=== PATIENT | female | born 1995 | race African-American/Black ===

== ENCOUNTER 2016-11-05 05:29 | Emergency (ER) | payer OTHER ==
[~2016-11-05] VITALS: Ht 162.6 cm; Wt 68.0 kg
[~2016-11-05 05:29] MED LIST: Z.0.BCPILL PO
[2016-11-05 05:32] VITALS: BP 138/85; PULSE 94; RESP 16; TEMP 98.1; O2SAT 99
--- NOTE | 2016-11-05 05:59 | PD ---
HPI Chief Complaint: Musculoskeletal Complaint Time Seen by Provider: 05:50 Travel History International Travel<30 days: No Contact w/Intl Traveler<30days: No Traveled to known affect area: No History of Present Illness HPI 21-year-old female here with lateral left ankle pain. Symptoms started 2 days ago. Pain is throbbing pain localized to the lateral left ankle with associated soft tissue swelling. She does not recall any injury. Denies any fall or trauma. Symptoms have persisted which prompted evaluation. She denies any pain in the left foot, left calf, left knee. She has no other complaints at this time. [facility] Past Medical History Medical History: Denies Significant Hx Diminished Hearing: No Tetanus Vaccination: < 5 Years Influenza Vaccination: No ?: Unknown LMP: 2 WKS AGO-IRREGULAR Menopausal: No Past Surgical History Surgical History: No Previous Surgery Social History Alcohol Use: Yes (OCCASIONAL) Tobacco Use: No Substance Use: Yes (MARIJUANA) Allergies-Medications (Allergen,Severity, Reaction): Coded Allergies: Ibuprofen (Verified Allergy, Unknown, Swelling, 11/05/16) Reported Meds & Prescriptions Reported Meds & Active Scripts Active No Active Prescriptions or Reported Medications Review of Systems Musculoskeletal: Positive: Edema, Pain Skin: Positive Other (no open wounds) Physical Exam Narrative GENERAL: Well-nourished female in no acute distress SKIN: Warm and dry. There is some soft tissue swelling inferior to the left ankle lateral malleolus. Tender to palpation. No erythema, no induration, no puncture wounds. CARDIOVASCULAR: Regular rate and rhythm. No murmur appreciated. RESPIRATORY: No accessory muscle use. Clear to auscultation. Breath sounds equal bilaterally. Musculoskeletal: Skin as noted above. There is no tenderness to palpation to the medial ankle joint. The Achilles tendon is intact. No tenderness to palpation to the foot. 2+ dorsalis pedis and posterior tibial pulse. There is pain with dorsi and plantar flexion of the left ankle. Data Data Last Documented VS Vital Signs Date Time Temp Pulse Resp B/P Pulse Ox O2 Delivery O2 Flow Rate FiO2 11/05/16 05:49 14 11/05/16 05:32 98.1 94 138/85 99 Room Air Orders Crutches (11/05/16 05:54) Splint Or Brace Apply/Monitor (11/05/16 05:54) MDM Medical Decision Making Medical Screen Exam Complete: Yes Emergency Medical Condition: Yes Medical Record Reviewed: Yes Differential Diagnosis Lateral ankle sprain, avulsion fracture, fibular fracture, contusion, hematoma Narrative Course 21-year-old female with lateral left ankle pain for 2 days. There was no known trauma. Examination reveals mild soft tissue swelling around the left lateral malleolus which is where her pain is. Likely this represents a mild lateral ankle sprain. There is no major trauma to suggest an avulsion or fibular fracture. Plan is to treat the patient conservatively with crutches, ankle stirrup, ice and elevation until swelling resolves and then gradually return to normal activities. She is stable for discharge. Diagnosis Primary Impression: Left ankle sprain Qualified Code: S93.402A - Sprain of left ankle, unspecified ligament, initial encounter Departure Forms: Tests/Procedures, Work Release Enter return to work date: Nov 06, 2016 Additional Instructions: As discussed, crutches, ice several times a day 15 minutes at a time and elevate until swelling is resolved. Then gradually return to normal activities avoiding activities that increase pain. Follow-up with primary care as needed. Return for new or worsening symptoms. Med/Other Pt SpecificInfo: No Change to Meds Scripts No Active Prescriptions or Reported Meds Disposition: DISCHARGE HOME Condition: Stable Tripp Cheng Nov 05, 2016 05:59
== END 2016-11-05 06:13 | disposition home or self-care (01) ==
LOC: NEPB 05:29
DX: S93.402A Sprain of unspecified ligament of left ankle, initial encounter (principal); Y93.9 Activity, unspecified
CPT/HCPCS: 99283; E0113; L1906

== ENCOUNTER 2016-11-30 19:58 | Emergency (ER) | payer OTHER ==
[~2016-11-30] VITALS: Ht 162.6 cm; Wt 73.5 kg
[2016-11-30 20:00] VITALS: BP 135/75; PULSE 94; RESP 16; TEMP 99.3
--- NOTE | 2016-11-30 20:14 | PD ---
HPI Chief Complaint: vaginal bleeding Time Seen by Provider: 20:02 Travel History International Travel<30 days: No Contact w/Intl Traveler<30days: No Traveled to known affect area: No History of Present Illness HPI 21-year-old female , LMP October 17, positive home test 3 days ago , brought in by ambulance from home for evaluation of vaginal bleeding and pelvic cramping. Symptoms started this morning. The patient noted some light spotting/pinkish spotting this morning which progressed to heavier vaginal bleeding throughout the day today. The patient has noted passing clots. She is having some intermittent suprapubic abdominal cramping. No urinary symptoms. No history of bleeding disorder. No history of PID or STD. She denies alcohol, tobacco, or drug use. PFSH Past Medical History Diminished Hearing: No Menopausal: No Social History Alcohol Use: Yes (OCCASIONAL) Tobacco Use: No Substance Use: Yes (MARIJUANA) Allergies-Medications (Allergen,Severity, Reaction): Coded Allergies: Ibuprofen (Verified Allergy, Unknown, Swelling, 11/30/16) Reported Meds & Prescriptions Reported Meds & Active Scripts Active No Active Prescriptions or Reported Medications Review of Systems Except as stated in HPI: all other systems reviewed are Neg Physical Exam Narrative GENERAL: Well-developed, well-nourished, comfortable, no acute distress. Tearful. SKIN: Warm and dry. No pallor. HEAD: Atraumatic. Normocephalic. EYES: Pupils equal and round. No scleral icterus. No injection or drainage. ENT: Mucous membranes pink and moist. CARDIOVASCULAR: Regular rate and rhythm. No murmur appreciated. RESPIRATORY: No accessory muscle use. Clear to auscultation. Breath sounds equal bilaterally. GASTROINTESTINAL: Abdomen soft, non-tender, nondistended. [employer]: Exam performed in the presence of a female nurse. Normal external genitalia. Moderate blood in vaginal vault. Cervical os is open with bleeding through the os. No cervical lacerations. No vaginal lacerations. No uterine tenderness. MUSCULOSKELETAL: No obvious deformities. No clubbing. No cyanosis. No edema. NEUROLOGICAL: Awake and alert. No obvious cranial nerve deficits. Motor grossly within normal limits. Normal speech. PSYCHIATRIC: Appropriate mood and affect; insight and judgment normal. Data Data Last Documented VS Vital Signs Date Time Temp Pulse Resp B/P Pulse Ox O2 Delivery O2 Flow Rate FiO2 11/30/16 21:40 96 16 122/70 98 Room Air 11/30/16 20:00 99.3 Orders Beta Hcg (Quant/Titer) (11/30/16 20:02) Complete Blood Count With Diff (11/30/16 20:02) Basic Metabolic Panel (Bmp) (11/30/16 20:02) Complete Rh (11/30/16 20:02) Type And Screen (11/30/16 20:02) Urinalysis - C+S If Indicated (11/30/16 20:02) Ed Urine Pregnancytest Poc (11/30/16 20:02) Us Pelvis (Ques Pr/Ect)W Trans (11/30/16 ) Labs Laboratory Tests Test 11/30/16 11/30/16 20:30 20:40 Urine Collection Type VOIDED Urine Color RED Urine Turbidity CLOUDY Urine pH 6.0 Urine Specific [place] 1.012 Urine Protein 30 mg/dL Urine Glucose (UA) NEG mg/dL Urine Ketones 80 OR GREATER mg/dL Urine Occult Blood LARGE Urine Nitrite NEG Urine Bilirubin NEG Urine Leukocyte Esterase TRACE Urine RBC INNUM /hpf Urine WBC 3-5 /hpf Urine Squamous Epithelial 0-2 /hpf Cells Microscopic Urinalysis Comment CULT NOT INDICATED White Blood Count 5.9 TH/MM3 Red Blood Count 4.22 MIL/MM3 Hemoglobin 12.6 GM/DL Hematocrit 37.3 % Mean Corpuscular Volume 88.3 FL Mean Corpuscular Hemoglobin 29.7 PG Mean Corpuscular Hemoglobin 33.7 % Concent Red Cell Distribution Width 12.2 % Platelet Count 197 TH/MM3 Mean Platelet Volume 10.4 FL Neutrophils (%) (Auto) 56.2 % Lymphocytes (%) (Auto) 27.4 % Monocytes (%) (Auto) 11.3 % Eosinophils (%) (Auto) 2.5 % Basophils (%) (Auto) 2.6 % Neutrophils # (Auto) 3.3 TH/MM3 Lymphocytes # (Auto) 1.6 TH/MM3 Monocytes # (Auto) 0.7 TH/MM3 Eosinophils # (Auto) 0.1 TH/MM3 Basophils # (Auto) 0.2 TH/MM3 CBC Comment AUTO DIFF Differential Comment AUTO DIFF CONFIRMED Platelet Estimate NORMAL Platelet Morphology Comment NORMAL Sodium Level 140 MEQ/L Potassium Level 3.2 MEQ/L Chloride Level 107 MEQ/L Carbon Dioxide Level 22.2 MEQ/L Anion Gap 11 MEQ/L Blood Urea Nitrogen 6 MG/DL Creatinine 0.52 MG/DL Estimat Glomerular Filtration 178 ML/MIN Rate Random Glucose 72 MG/DL Calcium Level 8.5 MG/DL Human Chorionic Gonadotropin, 1225 MIU/ML Quant Blood Type A POSITIVE Rho(D) Type POSITIVE Antibody Screen NEGATIVE Blood Bank Comment MDM Medical Decision Making Medical Screen Exam Complete: Yes Emergency Medical Condition: Yes Differential Diagnosis Ectopic , spontaneous , threatened , implantation bleed , vaginal/cervical laceration, Narrative Course Vital signs show heart rate 94, blood pressure 135/75, oral temp 99.3F. CBC is unremarkable. CMP is remarkable for potassium 3.2, otherwise unremarkable. Beta hCG is 1225. UA shows red urine with 80 years greater ketones with large occult blood, trace site esterase, innumerable rbc's, not suggestive of UTI. Pelvic ultrasound: CONCLUSION: 1. Suspected hemorrhage or aborted products of conception within the uterine cavity. 2. Probable right corpus luteal cyst. Nothing convincing for ectopic. Blood type is A+. Patient was made aware of all findings and high likelihood that this is a spontaneous . She is stable for discharge home with outpatient follow- up with an [facility] doctor this week. She was informed on when to return to the emergency department. She verbalizes understanding and agreement with plan. Diagnosis Primary Impression: Inevitable Referrals: Eloy Birmingham MD 2 days OB/GYB Additional Instructions: Follow-up with [facility] Dr. Birmingham or an [facility] doctor of your choice this week. Return to the emergency department for worsening symptoms or any other concerns. Scripts No Active Prescriptions or Reported Meds Disposition: 01 DISCHARGE HOME Condition: Stable Ermias Bourne MD Nov 30, 2016 20:13
[2016-11-30 20:57] LABS: BLOOD, URINE LARGE (NEG); GLUCOSE,URINE NEG (NEG); NITRITE,URINE NEG (NEG)
[2016-11-30 21:00] LABS: AUTOMATED NEUTROPHIL # 3.3 TH/MM3 (1.8-7.7); BASOPHIL # 0.2 TH/MM3 (0-0.2); BASOPHIL % 2.6 % (0.0-2.0); EOSINOPHIL # 0.1 TH/MM3 (0-0.4); EOSINOPHIL % 2.5 % (0.0-4.0); HEMATOCRIT 37.3 % (35.0-46.0); LYMPH % 27.4 % (9.0-44.0); LYMPHOCYTE # 1.6 TH/MM3 (1.0-4.8); MEAN CELL VOLUME 88.3 FL (80.0-100.0); MEAN CORPUSCULAR HEMOGLOBIN 29.7 PG (27.0-34.0); MEAN CORPUSCULAR HGB CONC 33.7 % (32.0-36.0); MONO % 11.3 % (0.0-8.0); NEUT % 56.2 % (16.0-70.0); PLATELET COUNT 197 TH/MM3 (150-450); RED BLOOD COUNT 4.22 MIL/MM3 (4.00-5.30); RED CELL DISTRIBUTION WIDTH 12.2 % (11.6-17.2); WHITE BLOOD COUNT 5.9 TH/MM3 (4.0-11.0)
[2016-11-30 21:08] LABS: POTASSIUM 3.2 MEQ/L (3.5-5.1)
[2016-11-30 21:11] LABS: BICARBONATE 22.2 MEQ/L (21.0-32.0)
[2016-11-30 21:15] VITALS: BP 132/77; PULSE 91; RESP 17; O2SAT 99
[2016-11-30 21:15] LABS: HEMO FLAGS AUTO DIFF
[2016-11-30 21:29] LABS: KETONE, URINE 80 OR GREATER mg/dL (NEG)
[2016-11-30 21:30] LABS: METHOD OF COLLECTION VOIDED; URINE COLOR RED (YELLW/STRAW)
[2016-11-30 21:31] LABS: COMMENT (UR) CULT NOT INDICATED; CULTURE IF INDICATED CULT NOT INDICATED; RBC, URINE INNUM /hpf (0-3); SQUAMOUS EPITHELIAL CELL URINE 0-2 /hpf (0-5)
[2016-11-30 21:40] VITALS: BP 122/70; PULSE 96; RESP 16; O2SAT 98
--- NOTE | 2016-11-30 21:53 | RADHPO ---
EXAM DATE/TIME: 11/30/2016 20:52 [facility] COMPARISON: No previous studies available for comparison. INDICATIONS : Pelvic pain. LAB(S): Beta-hC MEDICAL HISTORY : . SURGICAL HISTORY : None. ENCOUNTER: Initial ACUITY: 1 day PAIN SCORE: 6/10 LOCATION: Bilateral pelvis MEASUREMENTS: UTERUS: 8.5 x 4.5 x 5.4 cm ENDOMETRIAL STRIPE: 4 mm RIGHT OVARY: 3.3 x 2.0 x 1.6 cm LEFT OVARY: 3.7 x 2.2 x 2.6 cm FINDINGS: UTERUS: No perceptible intrauterine . There is a complex collection within the uterine cavity at the level of the body that measures approximately 3.4 x 0.9 x 1.9 cm. RIGHT OVARY: Thickwalled cyst measuring 1.9-1.4 x 1.6 cm noted. Nothing that looks like a yolk sac or pole. LEFT OVARY: Ovary contains no mass or significant cystic lesion. MISCELLANEOUS: Trace free fluid in the pelvic cul-de-sac. CONCLUSION: 1. Suspected hemorrhage or aborted products of conception within the uterine cavity. 2. Probable right corpus luteal cyst. Nothing convincing for ectopic. Eloy Moody MD on November 30, 2016 at 21:50 Board Certified Radiologist. This report was verified electronically.
[2016-11-30 22:03] LABS: PLATELET ESTIMATE SMEAR NORMAL (NORMAL)
[2016-11-30 22:04] LABS: PLATELET MORPHOLOGY NORMAL (NORMAL); SCAN/DIFF AUTO DIFF CONFIRMED
[2016-11-30 23:30] VITALS: BP 145/78
== END 2016-11-30 23:30 | disposition home or self-care (01) ==
LOC: PHED 19:58
DX: O20.0 Threatened abortion (principal); Z3A.01 Less than 8 weeks gestation of pregnancy
CPT/HCPCS: 76700; 76817; 80048; 81001; 84702; 84703; 85025; 86850; 86900; 86901

== ENCOUNTER 2016-12-05 16:11 | Emergency (ER) | payer OTHER ==
[~2016-12-05] VITALS: Ht 162.6 cm; Wt 76.0 kg
[2016-12-05 16:15] VITALS: BP 130/82; PULSE 92; RESP 16; TEMP 98.8; O2SAT 99
--- NOTE | 2016-12-05 16:42 | PD ---
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 Her pelvic cramping and bleeding had stopped. She tried to get a follow-up with Dr. Case but she says they won't see her because of her insurance but ordered an outpatient repeat beta hCG. Seems odd to me that they won't see her but they are ordering outpatient testing that nobody will follow- up with. Because of this oddity, she came to the ER requesting a beta hCG. In general she feels much better. Symptoms severity is mild. No alleviating factors. Duration was 3 days PFSH Past Medical History Diminished Hearing: No ?: Not LMP: 10/11/16 Menopausal: No : 1 Para: 0 Social History Alcohol Use: Yes (OCCASIONAL) Tobacco Use: No Substance Use: Yes (MARIJUANA) Allergies-Medications (Allergen,Severity, Reaction): Coded Allergies: Ibuprofen (Verified Allergy, Unknown, Swelling, 12/05/16) Reported Meds & Prescriptions Reported Meds & Active Scripts Active No Active Prescriptions or Reported Medications Review of Systems General / Constitutional: No: Fever Eyes: No: Visual changes HENT: No: Headaches Cardiovascular: No: Chest Pain or Discomfort Respiratory: No: Shortness of Breath Gastrointestinal: No: Abdominal Pain Genitourinary: No: Dysuria Musculoskeletal: No: Pain Skin: No Rash Neurologic: No: Weakness Psychiatric: No: Depression Endocrine: No: Polydipsia Hematologic/Lymphatic: No: Easy Bruising Physical Exam Narrative GENERAL: Well-nourished, well-developed patient in no apparent distress. SKIN: Warm and dry. HEAD: Atraumatic. Normocephalic. EYES: Pupils equal and round. No scleral icterus. No injection or drainage. ENT: No nasal bleeding or discharge. Mucous membranes pink and moist. NECK: Trachea midline. No JVD. CARDIOVASCULAR: Regular rate and rhythm. No murmur appreciated. RESPIRATORY: No accessory muscle use. Clear to auscultation. Breath sounds equal bilaterally. GASTROINTESTINAL: Abdomen soft, non-tender, nondistended. Hepatic and splenic margins not palpable. MUSCULOSKELETAL: No obvious deformities. No clubbing. No cyanosis. No edema. NEUROLOGICAL: Awake and alert. No obvious cranial nerve deficits. Motor grossly within normal limits. Normal speech. PSYCHIATRIC: Appropriate mood and affect; insight and judgment normal. Data Data Last Documented VS Vital Signs Date Time Temp Pulse Resp B/P Pulse Ox O2 Delivery O2 Flow Rate FiO2 12/05/16 16:15 98.8 92 16 130/82 99 Orders Beta Hcg (Quant/Titer) (12/05/16 16:34) Labs Laboratory Tests Test 12/05/16 17:10 Human Chorionic Gonadotropin, 70 MIU/ML Quant [facility] Medical Decision Making Medical Screen Exam Complete: Yes Emergency Medical Condition: Yes Medical Record Reviewed: Yes Differential Diagnosis Spontaneous miscarriage, threatened , ectopic Narrative Course I have reviewed the patient's electronic medical record. I reviewed her workup from 5 days including lab studies and ultrasound Everything pointed toward a spontaneous including ultrasound findings and open cervix on exam and vaginal bleeding Nothing pointed to ectopic Now she is here symptom free Beta hCG today is 70 Recommending outpatient PSYCH NP follow-up. Diagnosis Primary Impression: Spontaneous miscarriage Additional Instructions: The patient was advised to follow up with their physician and return if they worsen. Med/Other Pt SpecificInfo: Other Scripts No Active Prescriptions or Reported Meds Disposition: DISCHARGE HOME Condition: Stable Rell Nichols MD Dec 05, 2016 16:41
[2016-12-05 17:46] LABS: BETA HCG QUANT 70 MIU/ML (0-5)
== END 2016-12-05 18:15 | disposition home or self-care (01) ==
LOC: PHED 16:11
DX: O03.9 Complete or unspecified spontaneous abortion without complication (principal)
CPT/HCPCS: 84702; 99283

== ENCOUNTER 2016-12-08 15:24 | Emergency (ER) | payer OTHER ==
[~2016-12-08] VITALS: Ht 162.6 cm; Wt 74.0 kg
[2016-12-08 15:49] VITALS: BP 122/81; PULSE 80; RESP 15; TEMP 98.9; O2SAT 100
--- NOTE | 2016-12-08 16:00 | PD ---
HPI Chief Complaint: Injury Time Seen by Provider: 15:57 Travel History International Travel<30 days: No Contact w/Intl Traveler<30days: No Traveled to known affect area: No History of Present Illness HPI 21-year-old Afro[place]izen [place] female presents the emergency department with pain and swelling to the left dorsal lateral wrist over the distal ulna, since hyperextending her left wrist yesterday by herself trying to "pop it". Patient has since had pain and swelling in this area. Patient attempted to go to work at the [employer]. This pain worsens to the point of not being able to work. She denies numbness, tingling, or weakness. Patient states the pain right now is 8/ 10 with movement. Patient has anaphylactic reaction to ibuprofen. PFSH Past Medical History Diminished Hearing: No ?: Not LMP: 10/17/2016-RECENT MISCARRIAGE LAST WEEK PER PT Menopausal: No : 1 Para: 0 Social History Alcohol Use: Yes (OCCASIONAL) Tobacco Use: No Substance Use: Yes (MARIJUANA) Allergies-Medications (Allergen,Severity, Reaction): Coded Allergies: Ibuprofen (Verified Allergy, Unknown, Swelling, 12/08/16) Reported Meds & Prescriptions Reported Meds & Active Scripts Active Acetaminophen 325 Mg Tab 650 Mg PO Q6HR PRN Prednisone 20 Mg Tab 20 Mg PO BID Review of Systems General / Constitutional: No: Fever, Chills Eyes: No: Visual changes HENT: No: Headaches Cardiovascular: No: Chest Pain or Discomfort Respiratory: No: Shortness of Breath Gastrointestinal: No: Abdominal Pain Genitourinary: No: Dysuria Musculoskeletal: Positive: Arthralgias, Limited ROM, Pain (see history of present illness.) Skin: No Rash Neurologic: No: Weakness Psychiatric: No: Depression Endocrine: No: Polydipsia Hematologic/Lymphatic: No: Easy Bruising Physical Exam Narrative GENERAL: Patient appears in no acute distress. SKIN: Warm and dry. Normal color. Normal turgor. HEAD: Atraumatic. Normocephalic. EYES: Pupils equal and round. No scleral icterus. No injection or drainage. ENT: No nasal bleeding or discharge. Mucous membranes pink and moist. NECK: Trachea midline. No JVD. CARDIOVASCULAR: Regular rate and rhythm. RESPIRATORY: No accessory muscle use. Clear to auscultation. Breath sounds equal bilaterally. GASTROINTESTINAL: Abdomen soft, non-tender, nondistended. Hepatic and splenic margins not palpable. MUSCULOSKELETAL: Extremities without clubbing, cyanosis, or edema. No obvious deformities. Patient has tenderness and swelling over the dorsal ulnar wrist without obvious weakness or deformity. No snuffbox tenderness. NEUROLOGICAL: Awake and alert. No obvious cranial nerve deficits. Motor grossly within normal limits. Five out of 5 muscle strength in the arms and legs. Normal speech. PSYCHIATRIC: Appropriate mood and affect; insight and judgment normal. Data Data Last Documented VS Vital Signs Date Time Temp Pulse Resp B/P Pulse Ox O2 Delivery O2 Flow Rate FiO2 12/08/16 15:49 98.9 80 15 122/81 100 Orders Wrist, Complete ([id number]) (12/08/16 16:00) Ice/Cold Pack (12/08/16 16:00) Prednisone (Deltasone) (12/08/16 16:30) Support Splint (12/08/16 16:20) Cockup Hand Splint (12/08/16 ) MDM Medical Decision Making Medical Screen Exam Complete: Yes Emergency Medical Condition: Yes Differential Diagnosis Left wrist sprain. Left wrist pain. Left wrist swelling. Fracture. Tendinitis. Narrative Course Patient is medically stable at time of exam. X-ray of the left wrist is ordered. Ice pack is applied to the left wrist. X-ray shows no acute fracture dislocation. She is soft tissue swelling per radiologist. Patient is given 40 mg prednisone by mouth. Patient is placed in a Velcro wrist splint. Patient is given a prescription for prednisone 20 mg 3 times a day for 5 days to be started tomorrow. Patient given a prescription for acetaminophen to be taken as needed for pain as well. Patient should use the Velcro wrist splint for at least one week to ensure improvement. Work note with restrictions given. Patient should follow with her primary care physician if symptoms do not improve or worsen as discussed. Diagnosis Primary Impression: Sprain of left wrist Qualified Code: S63.502A - Sprain of left wrist, initial encounter Additional Impression: Left wrist tendonitis Referrals: Primary Care Physician Patient Instructions: General Instructions Departure Forms: Work Release Enter return to work date: Dec 09, 2016 Special Instructions: Patient must wear a Velcro wrist splint on the left wrist 1 week until better. Additional Instructions: X-ray shows no acute fracture dislocation. She is soft tissue swelling per radiologist. Patient is given 40 mg prednisone by mouth. Patient is placed in a Velcro wrist splint. Patient is given a prescription for prednisone 20 mg 3 times a day for 5 days to be started tomorrow. Patient given a prescription for acetaminophen to be taken as needed for pain as well. Patient should use the Velcro wrist splint for at least one week to ensure improvement. Work note with restrictions given. Patient should follow with her primary care physician if symptoms do not improve or worsen as discussed. Med/Other Pt SpecificInfo: Prescription(s) given Scripts Acetaminophen 325 Mg [id number] Mg PO Q6HR PRN (PAIN SCALE 4 TO 10) #40 TAB Prov:Priscilla Ahuja MD 12/08/16 Prednisone 20 Mg Tab20 Mg PO BID #10 TAB Prov:Priscilla Ahuja MD 12/08/16 Disposition: 01 DISCHARGE HOME Condition: Stable Rao Garcia Dec 08, 2016 16:00
--- NOTE | 2016-12-08 16:15 | RADHPO ---
EXAM DATE/TIME: 12/08/2016 16:02 [facility] COMPARISON: No previous studies available for comparison. INDICATIONS : Left wrist pain for three days. Patient states she put pressure on her wrist and it started to hurt a nd swell. MEDICAL HISTORY : None. SURGICAL HISTORY : None. ENCOUNTER: Initial ACUITY: 3 days PAIN SCORE: 8/10 LOCATION: Left wrist. FINDINGS: Three view examination of the left wrist demonstrates soft tissue swelling without dislocation, or fr acture. The carpal bones are in normal alignment. The joint spaces are maintained. Bony mineraliza tion is normal. CONCLUSION: Soft tissue swelling without fracture. Dez Robles MD on December 08, 2016 at 16:12 Board Certified Radiologist. This report was verified electronically.
[2016-12-08] MEDS ORDERED: ACET325T PO (16:24)
[2016-12-08] MEDS ORDERED: PRED20 PO (16:24)
[2016-12-08] MEDS ORDERED: predniSONE 20 MG TAB PO ONE (16:30)
== END 2016-12-08 16:40 | disposition home or self-care (01) ==
LOC: PHEFT 15:24
DX: S63.502A Unspecified sprain of left wrist, initial encounter (principal); M77.9 Enthesopathy, unspecified; X58.XXXA Exposure to other specified factors, initial encounter; Y93.9 Activity, unspecified; Y92.9 Unspecified place or not applicable; Y99.9 Unspecified external cause status
CPT/HCPCS: 73110; 99283; J7512; L3908

== ENCOUNTER 2017-01-26 08:57 | Emergency (ER) | payer OTHER ==
[~2017-01-26] VITALS: Ht 162.6 cm; Wt 78.0 kg
[~2017-01-26 08:57] MED LIST changes: +ACET325T PO; +PRED20 PO; -Z.0.BCPILL PO
[2017-01-26 09:02] VITALS: BP 119/78; PULSE 88; RESP 16; TEMP 98.4; O2SAT 98
[2017-01-26] MEDS ORDERED: SODIUM CHLOR 0.9% 1000 ML INJ 1,000 ML IV ONE (09:19)
[2017-01-26] MEDS ORDERED: METOCLOPRAMIDE HCL 10 MG/2 ML VIAL IVP ONE (09:30)
[2017-01-26] MEDS ORDERED: SODIUM CHLORIDE 0.9% FLUSH 10 ML FLUSH IVF PRN (09:30)
[2017-01-26] MEDS ORDERED: DEXAMETHASONE SOD PHOS 20 MG/5 ML VIAL IV PUSH ONE (09:30)
--- NOTE | 2017-01-26 09:32 | PD ---
HPI Chief Complaint: Headache Time Seen by Provider: 09:08 Travel History International Travel<30 days: No Contact w/Intl Traveler<30days: No Traveled to known affect area: No History of Present Illness HPI Patient is a 21-year-old female who presents to emergency room with complaints of headache. Patient reports that for the past 2 days, she has had increased posterior headache, reports that she has had photophobia with nausea with her symptoms. Patient reports that she believes that she may be as she has had similar symptoms in the past and reports that she had a miscarriage about one and a half month ago. Patient reports that she is currently awaiting her menstrual cycle and has not taken a test at this time. Reports no hx of migraines or no medical history at this time. Patient reports that she did try taking Tylenol 2 days ago and did have relief of symptoms, reports concern as headache has returned today. Patient denies fevers or chills, denies trauma to the head or neck. Patient with no chest pain or shortness of breath at this time. Denies abdominal pain, nausea or vomiting. Patient with no other complaints. PFSH Past Medical History Diminished Hearing: No ?: Unknown LMP: 12/2016 Menopausal: No : 1 Para: 0 Social History Alcohol Use: Yes (OCCASIONAL) Tobacco Use: No Substance Use: Yes (MARIJUANA) Allergies-Medications (Allergen,Severity, Reaction): Coded Allergies: Ibuprofen (Verified Allergy, Unknown, Swelling, 01/26/17) Reported Meds & Prescriptions Reported Meds & Active Scripts Active Review of Systems General / Constitutional: No: Fever, Chills Eyes: No: Visual changes HENT: Positive: Headaches Cardiovascular: No: Chest Pain or Discomfort Respiratory: No: Shortness of Breath Gastrointestinal: No: Abdominal Pain Genitourinary: No: Dysuria Musculoskeletal: No: Pain Skin: No Rash Neurologic: No: Weakness Psychiatric: No: Depression Endocrine: No: Polydipsia Hematologic/Lymphatic: No: Easy Bruising Physical Exam Narrative GENERAL: No acute stress, nontoxic SKIN: Focused skin assessment warm/dry. HEAD: Atraumatic. Normocephalic. EYES: Pupils equal and round. No scleral icterus. No injection or drainage. ENT: No nasal bleeding or discharge. Mucous membranes pink and moist. NECK: Trachea midline. No JVD. CARDIOVASCULAR: Regular rate and rhythm. No murmur appreciated. RESPIRATORY: No accessory muscle use. Clear to auscultation. Breath sounds equal bilaterally. GASTROINTESTINAL: Abdomen soft, non-tender, nondistended. Hepatic and splenic margins not palpable. MUSCULOSKELETAL: No obvious deformities. No clubbing. No cyanosis. No edema. NEUROLOGICAL: Awake and alert. No obvious cranial nerve deficits. Motor grossly within normal limits. Normal speech. Cranial nerves to 12 grossly intact with no neurological deficits PSYCHIATRIC: Appropriate mood and affect; insight and judgment normal. Data Data Last Documented VS Vital Signs Date Time Temp Pulse Resp B/P Pulse Ox O2 Delivery O2 Flow Rate FiO2 01/26/17 09:02 98.4 88 16 119/78 98 Orders Complete Blood Count With Diff (01/26/17 09:19) Basic Metabolic Panel (Bmp) (01/26/17 09:19) Iv Access Insert/Monitor (01/26/17 09:19) Sodium Chloride 0.9% Flush (Ns Flush) (01/26/17 09:30) Metoclopramide Inj (Reglan Inj) (01/26/17 09:30) Sodium Chlor 0.9% 1000 Ml Inj (Ns 1000 M (01/26/17 09:19) Urinalysis - C+S If Indicated (01/26/17 09:19) Ed Urine Pregnancytest Poc (01/26/17 09:19) Dexamethasone Inj (Decadron Inj) (01/26/17 09:30) Ct Brain W/O Iv Contrast(Rout) (01/26/17 09:37) Labs Laboratory Tests Test 01/26/17 09:20 White Blood Count 3.9 TH/MM3 Red Blood Count 3.91 MIL/MM3 Hemoglobin 11.0 GM/DL Hematocrit 34.2 % Mean Corpuscular Volume 87.5 FL Mean Corpuscular Hemoglobin 28.0 PG Mean Corpuscular Hemoglobin 32.1 % Concent Red Cell Distribution Width 11.6 % Platelet Count 202 TH/MM3 Mean Platelet Volume 10.0 FL Neutrophils (%) (Auto) 41.8 % Lymphocytes (%) (Auto) 37.2 % Monocytes (%) (Auto) 14.3 % Eosinophils (%) (Auto) 6.0 % Basophils (%) (Auto) 0.7 % Neutrophils # (Auto) 1.6 TH/MM3 Lymphocytes # (Auto) 1.5 TH/MM3 Monocytes # (Auto) 0.6 TH/MM3 Eosinophils # (Auto) 0.2 TH/MM3 Basophils # (Auto) 0.0 TH/MM3 CBC Comment DIFF FINAL Differential Comment Urine Collection Type CLEAN CATCH Urine Color YELLOW Urine Turbidity CLEAR Urine pH 6.0 Urine Specific [place] 1.025 Urine Protein NEG mg/dL Urine Glucose (UA) NEG mg/dL Urine Ketones NEG mg/dL Urine Occult Blood NEG Urine Nitrite NEG Urine Bilirubin NEG Urine Leukocyte Esterase NEG Urine WBC 0-2 /hpf Urine Squamous Epithelial 0-5 /hpf Cells Microscopic Urinalysis Comment CULT NOT INDICATED Sodium Level 141 MEQ/L Potassium Level 3.7 MEQ/L Chloride Level 108 MEQ/L Carbon Dioxide Level 23.1 MEQ/L Anion Gap 10 MEQ/L Blood Urea Nitrogen 10 MG/DL Creatinine 0.49 MG/DL Estimat Glomerular Filtration 191 ML/MIN Rate Random Glucose 93 MG/DL Calcium Level 8.5 MG/DL MDM Medical Decision Making Medical Screen Exam Complete: Yes Emergency Medical Condition: Yes Interpretation(s) Vital Signs Date Time Temp Pulse Resp B/P Pulse Ox O2 Delivery O2 Flow Rate FiO2 01/26/17 09:02 98.4 88 16 119/78 98 Laboratory Tests Test 01/26/17 09:20 White Blood Count 3.9 TH/MM3 (4.0-11.0) Red Blood Count 3.91 MIL/MM3 (4.00-5.30) Hemoglobin 11.0 GM/DL (11.6-15.3) Hematocrit 34.2 % (35.0-46.0) Mean Corpuscular Volume 87.5 FL (80.0-100.0) Mean Corpuscular Hemoglobin 28.0 PG (27.0-34.0) Mean Corpuscular Hemoglobin 32.1 % Concent (32.0-36.0) Red Cell Distribution Width 11.6 % (11.6-17.2) Platelet Count 202 TH/MM3 (150-450) Mean Platelet Volume 10.0 FL (7.0-11.0) Neutrophils (%) (Auto) 41.8 % (16.0-70.0) Lymphocytes (%) (Auto) 37.2 % (9.0-44.0) Monocytes (%) (Auto) 14.3 % (0.0-8.0) Eosinophils (%) (Auto) 6.0 % (0.0-4.0) Basophils (%) (Auto) 0.7 % (0.0-2.0) Neutrophils # (Auto) 1.6 TH/MM3 (1.8-7.7) Lymphocytes # (Auto) 1.5 TH/MM3 (1.0-4.8) Monocytes # (Auto) 0.6 TH/MM3 (0-0.9) Eosinophils # (Auto) 0.2 TH/MM3 (0-0.4) Basophils # (Auto) 0.0 TH/MM3 (0-0.2) CBC Comment DIFF FINAL Differential Comment Urine Collection Type CLEAN CATCH Urine Color YELLOW (YELLW/STRAW) Urine Turbidity CLEAR (CLEAR) Urine pH 6.0 (5.0-8.5) Urine Specific [place] 1.025 (1.002-1.035) Urine Protein NEG mg/dL (NEG-TRACE) Urine Glucose (UA) NEG mg/dL (NEG) Urine Ketones NEG mg/dL (NEG) Urine Occult Blood NEG (NEG) Urine Nitrite NEG (NEG) Urine Bilirubin NEG (NEG) Urine Leukocyte Esterase NEG (NEG) Urine WBC 0-2 /hpf (0-5) Urine Squamous Epithelial 0-5 /hpf (0-5) Cells Microscopic Urinalysis Comment CULT NOT INDICATED Sodium Level 141 MEQ/L (136-145) Potassium Level 3.7 MEQ/L (3.5-5.1) Chloride Level 108 MEQ/L (98-107) Carbon Dioxide Level 23.1 MEQ/L (21.0-32.0) Anion Gap 10 MEQ/L (5-15) Blood Urea Nitrogen 10 MG/DL (7-18) Creatinine 0.49 MG/DL (0.50-1.00) Estimat Glomerular Filtration 191 ML/MIN Rate (>89) Random Glucose 93 MG/DL (74-106) Calcium Level 8.5 MG/DL (8.5-10.1) Differential Diagnosis Cephalgia, , dehydration, electrolyte abnormality Narrative Course Patient is a 21-year-old female who presents to emergency room with complaints of cephalgia for the past 2 days. Reports that she has had a posterior headache , reports an increased pressure to the back of her head. Reports that she did have relief of symptoms with acetaminophen. Patient with return of posterior headache after "Tylenol wore off" Patient with normal neurological exam, patient nontoxic and evaluation. She denies thunderclap headache, denies that this is the worst headache of her life. Plan to obtain CT of head, lab work as well as an urine EKG. We'll give migraine cocktail. urine hcg neg Laboratory Tests Test 01/26/17 09:20 White Blood Count 3.9 TH/MM3 (4.0-11.0) Red Blood Count 3.91 MIL/MM3 (4.00-5.30) Hemoglobin 11.0 GM/DL (11.6-15.3) Hematocrit 34.2 % (35.0-46.0) Mean Corpuscular Volume 87.5 FL (80.0-100.0) Mean Corpuscular Hemoglobin 28.0 PG (27.0-34.0) Mean Corpuscular Hemoglobin 32.1 % Concent (32.0-36.0) Red Cell Distribution Width 11.6 % (11.6-17.2) Platelet Count 202 TH/MM3 (150-450) Mean Platelet Volume 10.0 FL (7.0-11.0) Neutrophils (%) (Auto) 41.8 % (16.0-70.0) Lymphocytes (%) (Auto) 37.2 % (9.0-44.0) Monocytes (%) (Auto) 14.3 % (0.0-8.0) Eosinophils (%) (Auto) 6.0 % (0.0-4.0) Basophils (%) (Auto) 0.7 % (0.0-2.0) Neutrophils # (Auto) 1.6 TH/MM3 (1.8-7.7) Lymphocytes # (Auto) 1.5 TH/MM3 (1.0-4.8) Monocytes # (Auto) 0.6 TH/MM3 (0-0.9) Eosinophils # (Auto) 0.2 TH/MM3 (0-0.4) Basophils # (Auto) 0.0 TH/MM3 (0-0.2) CBC Comment DIFF FINAL Differential Comment Urine Collection Type CLEAN CATCH Urine Color YELLOW (YELLW/STRAW) Urine Turbidity CLEAR (CLEAR) Urine pH 6.0 (5.0-8.5) Urine Specific [place] 1.025 (1.002-1.035) Urine Protein NEG mg/dL (NEG-TRACE) Urine Glucose (UA) NEG mg/dL (NEG) Urine Ketones NEG mg/dL (NEG) Urine Occult Blood NEG (NEG) Urine Nitrite NEG (NEG) Urine Bilirubin NEG (NEG) Urine Leukocyte Esterase NEG (NEG) Urine WBC 0-2 /hpf (0-5) Urine Squamous Epithelial 0-5 /hpf (0-5) Cells Microscopic Urinalysis Comment CULT NOT INDICATED Sodium Level 141 MEQ/L (136-145) Potassium Level 3.7 MEQ/L (3.5-5.1) Chloride Level 108 MEQ/L (98-107) Carbon Dioxide Level 23.1 MEQ/L (21.0-32.0) Anion Gap 10 MEQ/L (5-15) Blood Urea Nitrogen 10 MG/DL (7-18) Creatinine 0.49 MG/DL (0.50-1.00) Estimat Glomerular Filtration 191 ML/MIN Rate (>89) Random Glucose 93 MG/DL (74-106) Calcium Level 8.5 MG/DL (8.5-10.1) Last Impressions Head CT 01/26/17 0937 Signed Impressions: Service Date/Time: Thursday, January 26, 2017 09:53 - CONCLUSION: No acute disease. Mason Weldon MD Patient reevaluated, patient reports that she is feeling much better at this time. Patient with complete resolution of headache at this time. Signs and symptoms of when to return to the emergency room was reviewed patient in detail. Patient follow up with primary care doctor return to emergency room as needed. Diagnosis Primary Impression: Cephalgia Qualified Code: R51 - Nonintractable headache, unspecified chronicity pattern , unspecified headache type Additional Impression: Anemia Qualified Code: D64.9 - Anemia, unspecified type Additional Instructions: Return to emergency room as needed Please up with your primary care doctor in 2-3 days Please drink plenty of fluids Return to emergency room if symptoms return Disposition: 01 DISCHARGE HOME Condition: Stable Charisse Montesinos DO Jan 26, 2017 09:32
[2017-01-26 09:37] LABS: AUTOMATED NEUTROPHIL # 1.6 TH/MM3 (1.8-7.7); BASOPHIL % 0.7 % (0.0-2.0); EOSINOPHIL # 0.2 TH/MM3 (0-0.4); HEMATOCRIT 34.2 % (35.0-46.0); HEMO FLAGS DIFF FINAL; LYMPH % 37.2 % (9.0-44.0); LYMPHOCYTE # 1.5 TH/MM3 (1.0-4.8); MEAN CELL VOLUME 87.5 FL (80.0-100.0); MEAN CORPUSCULAR HGB CONC 32.1 % (32.0-36.0); MONO % 14.3 % (0.0-8.0); NEUT % 41.8 % (16.0-70.0); PLATELET COUNT 202 TH/MM3 (150-450); RED BLOOD COUNT 3.91 MIL/MM3 (4.00-5.30); RED CELL DISTRIBUTION WIDTH 11.6 % (11.6-17.2); WHITE BLOOD COUNT 3.9 TH/MM3 (4.0-11.0)
[2017-01-26 09:43] LABS: BLOOD, URINE NEG (NEG); GLUCOSE,URINE NEG (NEG); KETONE, URINE NEG (NEG); NITRITE,URINE NEG (NEG)
[2017-01-26 09:46] LABS: METHOD OF COLLECTION CLEAN CATCH; URINE COLOR YELLOW (YELLW/STRAW)
[2017-01-26 09:47] LABS: COMMENT (UR) CULT NOT INDICATED; CULTURE IF INDICATED CULT NOT INDICATED; SQUAMOUS EPITHELIAL CELL URINE 0-5 /hpf (0-5); WBC, URINE 0-2 /hpf (0-5)
[2017-01-26 09:57] LABS: POTASSIUM 3.7 MEQ/L (3.5-5.1)
[2017-01-26 10:00] LABS: BICARBONATE 23.1 MEQ/L (21.0-32.0)
--- NOTE | 2017-01-26 10:20 | RADHPO ---
EXAM DATE/TIME: 01/26/2017 09:53 [facility] COMPARISON: No previous studies available for comparison. INDICATIONS : Right sided headache for two days. RADIATION DOSE: 55.05 CTDIvol (mGy) MEDICAL HISTORY : None SURGICAL HISTORY : None. ENCOUNTER: Initial ACUITY: 2 days PAIN SCALE: 5/10 LOCATION: Right cranial TECHNIQUE: Multiple contiguous axial images were obtained of the head. Using automated exposure control and adj ustment of the mA and/or kV according to patient size, radiation dose was kept as low as reasonably a chievable to obtain optimal diagnostic quality images. FINDINGS: CEREBRUM: The ventricles are normal for age. No evidence of midline shift, mass lesion, hemorrhage or acute in farction. No extra-axial fluid collections are seen. POSTERIOR FOSSA: The cerebellum and brainstem are intact. The 4th ventricle is midline. The cerebellopontine angle i s unremarkable. EXTRACRANIAL: The visualized portion of the orbits is intact. SKULL: The calvaria is intact. No evidence of skull fracture. CONCLUSION: No acute disease. Mason Weldon MD on January 26, 2017 at 10:11 Board Certified Radiologist. This report was verified electronically.
== END 2017-01-26 10:59 | disposition home or self-care (01) ==
LOC: PHED 08:57
DX: R51 Headache (principal); D64.9 Anemia, unspecified; H53.149 Visual discomfort, unspecified; R11.0 Nausea
CPT/HCPCS: 70450; 80048; 81001; 84703; 85025; 96361; 96374; 96375; 99284; J1100; J2765; J7030